=== PATIENT | female | born 2005 | race Caucasian/White ===

== ENCOUNTER 2025-02-03 11:11 | Outpatient (AMB) | payer BC, SELFPAY ==
--- NOTE | 2025-02-03 11:17 | HO.NEPHOV ---
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 She has been feeling tired and was seen in [facility] health services. She underwent investigations including renal functions and was found have a serum creatinine of 1.2 in November. Subsequently it was repeated it was 1.1 and very recently was 1.08. She is not hypertensive or diabetic. She has no history of ankle swelling, proteinuria, hypertension, recurrent UTI, microscopic hematuria or hearing deficits. She was a premature baby at and had auditory processing disorder. She has depression and is on multiple antidepressant medications. She denies any hospitalizations or UTI treatments during her childhood. She denies any history of reflux nephropathy. Blood pressure has been steady and stable. She has gained some weight but not excessively. She does not take any drugs or creatine. She does not work out excessively and denies any muscle pain, joint pains, epistaxis, photosensitivity, his new skin rashes, flank pain, hematuria. She does not take excessive nonsteroidal anti-inflammatories but is not very good with keeping up with hydration. She has no diagnose the autoimmune disorders. Recently she was found to have sleep apnea and has been on CPAP for last couple weeks. She feels her energy is better but not good when she wakes up. She denies any nausea, vomiting, diarrhea, proximal nocturnal dyspnea, orthopnea or orthostatic symptoms. [facility] Medical History (Updated 02/03/25 @ 12:59 by Boni Enciso MD) High serum creatine Depression Auditory processing disorder CHRISTOPHER (obstructive sleep apnea) Low ferritin Family History Mother Ovarian cancer Social History Alcohol intake: never Patient Tobacco Use Status: Never used Tobacco Review of Systems Const All systems reviewed & are unremarkable except as noted in HPI and below Physical Exam Vital Signs: Last Vital Signs BP 110/70 02/03/25 11:21 BMI result Body Mass Index 33.8 Const General: comfortable and no acute distress Orientation/consciousness: patient oriented x3 HEENT Head: Yes normocephalic Mouth: Normal oral and palatal mucosa present Eyes EOM: EOMs intact bilaterally Neck Neck: Yes supple Resp Auscultation: clear to auscultation bilaterally Cardio Jugular venous distension: no JVD Rate: regular rate GI Palpation (GI): Soft to palpation Auscultation: normal bowel sounds Skin General skin exam: no rashes or lesions noted Neuro General: patient oriented x3 and moves all extremities Extrem General: Yes no pedal edema Results Reviewed Nephrology Results: No Data to Display Assessment & Plan Assessment & Plan (1) High serum creatine: Code(s): R79.89 - Other specified abnormal findings of blood chemistry Category: Medical Plan Ignacia was found to have a serum creatinine of 1.2 as an incidental finding while investigating for her tiredness. Recent serum creatinine is 1.08. She denies any recurrent UTI or UTI as a child or reflux nephropathy. She has no history of proteinuria, microscopic hematuria, sensorineural deafness, hypertension. She claims to have auditory processing disorder. I have ordered ultrasound of the kidney, urinalysis as well as creatinine clearance. If her creatinine clearance is lower than expected for her age, I shall investigate it further. She could continue on her current medications and should remain compliant with CPAP. She may benefit from increasing her oral iron and we should check thyroid function if not done yet. I did not make any medication changes today but rather encouraged her to maintain good hydration and avoid nonsteroidal anti-inflammatories. I answered all questions and follow-up appointment given in a few weeks Orders: Orders Protein Creatinine Ratio, Ur Today R79.89 - Other specified abnormal findings of blood chemistry Electrolytes Today R7.89 - Other specified abnormal findings of blood chemistry Creatinine Today R7.89 - Other specified abnormal findings of blood chemistry UA and rflx microscopic Today R7. - Other specified abnormal findings of blood chemistry Creatinine Clearance Urine 24U Today R7.89 - Other specified abnormal findings of blood chemistry Blood Urea Nitrogen Today R79.89 - Other specified abnormal findings of blood chemistry US renal BI 2 Weeks R79.89 - Other specified abnormal findings of blood chemistry Coding Level of Care Code New Pt Level 4 (88765) Diagnoses High serum creatine R79.89
[2025-02-03 11:21] VITALS: BP 110/70; BMI 33.8
--- OUTSIDE RECORDS SUMMARY | 2025-02-03 12:33 | XMS_ITS | Clinical Summary ---
[facility] Address [address] [place] [address] Phone Care Team Providers Care Fox Farmer Name Role Phone Physician, No Pcp Primary Care Provider Unavaila ble Allergies No known active allergies Medications buPROPion XL (WELLBUTRIN XL) 150 mg 24 hr tablet Take 1 tablet (150 mg total) by mouth 1 (one) time each day. Active buPROPion XL (WELLBUTRIN XL) 300 mg 24 hr tablet Take 1 tablet (300 mg total) by mouth 1 (one) time each day in the morning. Active Vraylar 3 mg capsule Take 1 capsule (3 mg total) by mouth at bedtime. 11/06/2023 Active Xopenex HFA 45 mcg/actuation inhaler Inhale 2 puffs by mouth every 30 minutes as needed. 11/06/2023 Active lisdexamfetamin e (VYVANSE) 60 mg capsule Take 1 capsule (60 mg total) by mouth 1 (one) time each day in the morning. 09/17/2023 Active vilazodone (VIIBRYD) 40 mg tablet Take 1 tablet (40 mg total) by mouth 1 (one) time each day. Active Immunizations Name Administration Dates Next Due DTaP (Infanrix) 6wks to less than 7yo ,03/07/2004,2003,09/09 DTaP / Hib 08/16/2004 HPV 9-valent (Gardisil) 9yo to less than 46yo 04/19/2016,12/20/2015 HPV, Quadrivalent 06/14/2015 Hepatitis A Pediatric (Havri x; Vaqta) 12mo to less than 19yo 06/08/2008,09/19/2006 Hepatitis B (Dxpfryn-V-Nsxru , Recombivax HB-Adult) 19yo and older 03/07/2004,2003,2003 HiB 2003,2003,2003 IPV Inactivated polio (Ipol) 6wks and older 06/08/2008,08/02/2004,2003,09/09 Influenza Quadravalent, MDCK , 0.5ml, preservative free (Flucelvax) 6mo and older 11/12/2022,08/08/2019 Influenza Quadrivalent, 0.5m l, preservative free (Fluarix; FluLaval; Fluzone) ages 6mo and older (Afluria) 3yo and older 09/19/2020,09/05/2018,09/01/2017,07/03 Influenza trivalent, 0.5mL, preservative free (Fluarix; FluLaval; Fluzone) ages 6mo and older (Afluria) 3 years and older 08/12/2005,09/17/2004,08/16/2004 Influenza trivalent, with pr eservative (Fluzone; Afluria) 6mo and older 07/15/2009,09/19/2007,09/19/2006 Influenza, Unspecified 07/15/2021 MMR, measles mumps and rubel la Live (Priorix; M-M-R II) 12mo and older 05/23/2008,10/03/2004 Meningococcal B, Recombinant (Bexsero) 16yo to less than 24yo 05/30/2021,04/19/2021 Meningococcal MCV4P 04/19/2021,07/03/2016 Pneumococcal Conjugate Vacci ne, 7 Valent 01/14/2005,08/02/2004,01/25/2004,09/09 Tdap Tetanus diptheria acell ular pertussis (Boostrix; Adacel) 7yo and older 2014 Varicella live (Varivax) 12m o and older 05/23/2008,09/17/2004 Social History Tobacco Use Types Packs/Day Years Used Date Smoking Tobacco: Never Smokeless Tobacco: Never Comments Unknown Sex and Gender Information Value Date Recorded Sex Assigned at Female 05/22/2024 3:11 PM EDT Legal Sex Female 2:38 PM EDT Gender Identity Other 05/22/2024 3:11 PM EDT Sexual Orientation Not on file Obstetrics History Last Filed Vital Signs Vital Sign Reading Time Taken Comments Blood Pressure 101/66 05/22/2024 2:55 PM EDT Pulse 102 05/22/2024 2:55 PM EDT Temperature 36.6 ??C (97.9 ??F) 05/22/2024 2:55 PM ED T Respiratory Rate 18 05/22/2024 2:55 PM EDT Oxygen Saturation 98% 05/22/2024 2:55 PM EDT Inhaled Oxygen Concentration - - Weight 77.2 kg (170 lb 3.2 oz) 05/22/2024 2:55 P M EDT Height 167 cm (5' 5.75 ) 05/22/2024 2:55 PM EDT Body Mass Index 27.68 05/22/2024 2:55 PM EDT Plan of Treatment Health Maintenance Due Date Last Done Comments Gonorrhea/Chlamydia Screening 2003 Cervical Cancer Screening: Pap Smear 2024 DTaP,Tdap,and Td Vaccines (7 - Td or Tdap) 2024 2014, 06/08/2008, 08/16/2004, Additional history exists HIV Screening 05/22/2024 Social Influencers of Health Screening 05/22/2024 COVID-19 Vaccine ( season) 2024 08/10/2023, 03/16/2021, 02/22/2021 Annual Well Child Visit (3-21 years old) 11/06/2024 11/06/2023, 04/19/2021, 09/09/2019, Additional history exists Depression Screening 11/06/2024 11/06/2023 Influenza Vaccine (Season Ended) 2025 11/12/2022, 07/15/2021, 09/19/2020, Additional history exists Hepatitis B Vaccines Completed 03/07/2004, 2003, 2003 HIB Vaccines Completed 08/16/2004, 12/05, 2003, Additional history exists Pneumococcal Vaccine: Pediatrics (0 to 5 Years) and At-Risk Patients (6 to 64 Years) Completed 01/14/2005, 08/02/2004, 01/25/2004, Additional history exists MMR Vaccines Completed 05/23/2008, 10/03/2004 Varicella Vaccines Completed 05/23/2008, 09/17/2004 Hepatitis A Vaccines Completed 06/08/2008, 09/19/20 IPV Vaccines Completed 06/08/2008, 07/06, 2003, Additional history exists HPV Vaccines Completed 04/19/2016, 12/04, 06/14/2015 Meningococcal ACWY Vaccine Completed 04/19/2021, Meningococcal B Vacine Completed 05/30/2021, 2020 Hepatitis C Screening Completed 03/15/2022 RSV Immunization Patients Under 20 months Aged Out No longer eligible based on patient's age to complete this topic Insurance ([facility]) Care Teams Fox Farmer Relationship Specialty Start Date End Date Physician, No Pcp PCP - General 05/22/24
== END 2025-02-03 11:48 | disposition home or self-care (01) ==
LOC: HO.HKAS 11:12
PROVIDERS: Visit Provider Internal Medicine Nephrology
DX: R79.89 Other specified abnormal findings of blood chemistry (principal)
CPT/HCPCS: 99204

== ENCOUNTER → 2025-02-03 11:11 | Outpatient (BNVA) | payer BC, SELFPAY | PROVIDERS: Visit Provider Internal Medicine Nephrology ==

== ENCOUNTER 2025-02-24 13:13 | Outpatient (REF) | payer BC, SELFPAY ==
--- NOTE | ~2025-02-24 | US_ITS ---
CLINICAL HISTORY: R79.89 - Other specified abnormal findings of blood chemistry --- Additional Notes or Special Instructions: high level serum creatine US Renal Comparison: None Findings: Right kidney normal size and echotexture, 10.1 cm length. Left kidney normal size and echotexture, 10.2 cm length. No collecting system dilatation of either kidney. Normal color Doppler. IMPRESSION: 1. Normal kidneys. This document has been electronically signed by: Chandler Barboza MD on 02/26/2025 08:16:02
== END 2025-02-24 13:14 | disposition home or self-care (01) ==
LOC: HO.HMGCX 13:13
PROVIDERS: Visit Provider Internal Medicine Nephrology
DX: R79.89 Other specified abnormal findings of blood chemistry (principal)
CPT/HCPCS: 76775

== ENCOUNTER → 2025-02-24 13:16 | Outpatient (BNV) | payer BC, SELFPAY | PROVIDERS: Visit Provider Radiology Vascular & Interventional Radiology | DX: R79.89 Other specified abnormal findings of blood chemistry (principal) | CPT/HCPCS: 76775 ==

== ENCOUNTER 2025-03-04 15:10 | Outpatient (AMB) | payer BC, SELFPAY ==
--- OUTSIDE RECORDS SUMMARY | 2025-03-04 15:12 | XMS_ITS | Clinical Summary ---
Author Organization [facility] Address [address] [place] [address] Phone Care Team Providers Care Protohistorian Name Role Phone Physician, No Pcp Primary [...] to less than 19yo 06/08/2008,09/19/2006 Hepatitis B (Qctmjma-B-Bmhbz , Recombivax HB-Adult) 19yo and older 03/07/2004,2003,2003 [...] Meningococcal ACWY Vaccine Completed 04/19/2021, Meningococcal B Vaccine Completed 05/30/2021, 04/19 Hepatitis C Screening Completed 03/15/2022 RSV Immunization Patients Under 20 months Aged Out No longer eligible based on patient's age to complete this topic [place] [address] [place] [address] ([facility]) Care Teams Protohistorian Relationship Specialty Start Date End Date Physician, No Pcp PCP - General 05/22/24
--- NOTE | 2025-03-04 15:39 | HO.NEPHOV_ITS ---
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 She has been feeling tired and was seen in [facility] health services. She underwent investigations including renal functions and was found have a serum creatinine of 1.2 in November. Subsequently it was repeated it was 1.1 and very recently it was same. She is not hypertensive or diabetic. She has no history of ankle swelling, proteinuria, hypertension, recurrent UTI, microscopic hematuria or hearing deficits. She was a premature baby at and had auditory processing disorder. She has depression and is on multiple antidepressant medications. She denies any hospitalizations or UTI treatments during her childhood. She denies any history of reflux nephropathy. Her blood pressure has been steady and stable. She has gained some weight but not excessively. She does not take any drugs or creatine. She does not work out excessively and denies any muscle pain, joint pains, epistaxis, photosensitivity, his new skin rashes, flank pain, hematuria. She does not take excessive nonsteroidal anti-inflammatories but is not very good with keeping up with hydration. She has no diagnose the autoimmune disorders. Recently she was found to have sleep apnea and has been on CPAP . She feels her energy is better but not good when she wakes up. She denies any nausea, vomiting, diarrhea, proximal nocturnal dyspnea, orthopnea or orthostatic symptoms. [facility] Medical History High serum creatine Depression Auditory processing disorder CHRISTOPHER (obstructive sleep apnea) Low ferritin Family History Mother Ovarian cancer Social History Alcohol intake: never Patient Tobacco Use Status: Never used Tobacco Review of Systems Const All systems reviewed & are unremarkable except as noted in HPI and below Physical Exam Vital Signs: Last Vital Signs Pulse 94 03/04/25 15:40 BP 104/60 03/04/25 15:40 Pulse Ox 97 03/04/25 15:40 Oxygen Delivery Method Room Air 03/04/25 15:40 BMI result Body Mass Index 33.6 Const General: comfortable and no acute distress Orientation/consciousness: patient oriented x3 HEENT Head: Yes normocephalic Mouth: Normal oral and palatal mucosa present Eyes EOM: EOMs intact bilaterally Neck Neck: Yes supple Resp Auscultation: clear to auscultation bilaterally Cardio Jugular venous distension: no JVD Rate: regular rate GI Palpation (GI): Soft to palpation Auscultation: normal bowel sounds General: Yes no CVA tenderness Back/Spine/Pelvis Back: no CVA tenderness Skin General skin exam: no rashes or lesions noted Neuro General: patient oriented x3 and moves all extremities Extrem General: Yes no pedal edema Results Reviewed Nephrology Results: Renal US 02/26/25 Assessment & Plan Assessment & Plan (1) High serum creatine: Code(s): R79.89 - Other specified abnormal findings of blood chemistry Category: Medical Plan Ignacia was found to have a serum creatinine of 1.2 as an incidental finding while investigating for her tiredness. Recent serum creatinine is 1.1. She denies any recurrent UTI or UTI as a child or reflux nephropathy. She has no history of proteinuria, microscopic hematuria, sensorineural deafness, hypertension. She claims to have auditory processing disorder. If her creatinine clearance is lower than expected for her age, I shall investigate it further. She could continue on her current medications and should remain compliant with CPAP. She may benefit from increasing her oral iron and we should check thyroid function if not done yet. I did not make any medication changes today but rather encouraged her to maintain good hydration and avoid nonsteroidal anti-inflammatories. I answered all questions and follow-up appointment given Orders: Orders Creatinine Clearance Urine 24U 6 Months R7.89 - Other specified abnormal findings of blood chemistry Creatinine 6 Months R7 - Other specified abnormal findings of blood chemistry Blood Urea Nitrogen 6 Months R7. - Other specified abnormal findings of blood chemistry Electrolytes 6 Months R79.89 - Other specified abnormal findings of blood chemistry Calcium 6 Months R79.89 - Other specified abnormal findings of blood chemistry Coding Level of Care Code Est Pt Level 4 (54594) Diagnoses High serum creatine R79.89
[2025-03-04 15:40] VITALS: BP 104/60; PULSE 94; O2SAT 97; BMI 33.6
== END 2025-03-04 16:11 | disposition home or self-care (01) ==
LOC: HO.HKA 15:10
PROVIDERS: Visit Provider Internal Medicine Nephrology
DX: R79.89 Other specified abnormal findings of blood chemistry (principal)
CPT/HCPCS: 99214

== ENCOUNTER → 2025-03-04 15:10 | Outpatient (BNVA) | payer BC, SELFPAY | PROVIDERS: Visit Provider Internal Medicine Nephrology ==

== ENCOUNTER 2025-09-02 10:40 | Outpatient (AMB) | payer BC, SELFPAY ==
--- NOTE | 2025-09-02 10:42 | HO.NEPHOV ---
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 She is 20 years of age, from [place], who was a student in [employer] majoring in [email or web address] and [employer], now graduated and working . She has been feeling tired and was seen in [facility] health services. She underwent investigations including renal functions and was found have a serum creatinine of 1.2 in November. Subsequently it was repeated it was 1.1 and very recently it was same. She is not hypertensive or diabetic. She has no history of ankle swelling, proteinuria, hypertension, recurrent UTI, microscopic hematuria or hearing deficits. She was a premature baby at and had auditory processing disorder. She has depression and is on multiple antidepressant medications. She denies any hospitalizations or UTI treatments during her childhood. She denies any history of reflux nephropathy. Her blood pressure has been steady and stable. She has gained some weight but not excessively. She does not take any drugs or creatine. She does not work out excessively and denies any muscle pain, joint pains, epistaxis, photosensitivity, his new skin rashes, flank pain, hematuria. She does not take excessive nonsteroidal anti-inflammatories but is not very good with keeping up with hydration. She has no diagnose the autoimmune disorders. Recently she was found to have sleep apnea and has been on CPAP . She feels her energy is better but not good when she wakes up. She denies any nausea, vomiting, diarrhea, proximal nocturnal dyspnea, orthopnea or orthostatic symptoms. [facility] Medical History High serum creatine Depression Auditory processing disorder CHRISTOPHER (obstructive sleep apnea) Low ferritin Family History Mother Ovarian cancer Social History Alcohol intake: never Patient Tobacco Use Status: Never used Tobacco Review of Systems Const All systems reviewed & are unremarkable except as noted in HPI and below Physical Exam Vital Signs: Last Vital Signs Pulse 92 09/02/25 10:44 BP 102/60 09/02/25 10:44 Pulse Ox 97 09/02/25 10:44 Oxygen Delivery Method Room Air 09/02/25 10:44 Const General: comfortable and no acute distress Orientation/consciousness: patient oriented x3 HEENT Head: Yes normocephalic Mouth: Normal oral and palatal mucosa present Eyes EOM: EOMs intact bilaterally Neck Neck: Yes supple Resp Auscultation: clear to auscultation bilaterally Cardio Jugular venous distension: no JVD Rate: regular rate GI Palpation (GI): Soft to palpation Auscultation: normal bowel sounds General: Yes no CVA tenderness Back/Spine/Pelvis Back: no CVA tenderness Skin General skin exam: no rashes or lesions noted Neuro General: patient oriented x3 and moves all extremities Extrem General: Yes no pedal edema Results Reviewed Nephrology Results: Renal US 02/26/25 Assessment & Plan Assessment & Plan (1) High serum creatine: Code(s): R79.89 - Other specified abnormal findings of blood chemistry Category: Medical Plan Ignacia was found to have a serum creatinine of 1.2 as an incidental finding while investigating for her tiredness. Recent last serum creatinine was 1.1. She denies any recurrent UTI or UTI as a child or reflux nephropathy. She has no history of proteinuria, microscopic hematuria, sensorineural deafness, hypertension. She claims to have auditory processing disorder. If her creatinine clearance is lower than expected for her age, I shall investigate it further. She could continue on her current medications and should remain compliant with CPAP. She is on oral iron and we should check thyroid function if not done yet. I did not make any medication changes today but rather encouraged her to maintain good hydration and avoid nonsteroidal anti-inflammatories. I answered all questions and follow-up appointment given Orders: Orders Creatinine 8 Months - Other specified abnormal findings of blood chemistry Blood Urea Nitrogen 8 Months - Other specified abnormal findings of blood chemistry Protein Creatinine Ratio, Ur 8 Months - Other specified abnormal findings of blood chemistry Electrolytes Today - Other specified abnormal findings of blood chemistry Creatinine Today - Other specified abnormal findings of blood chemistry Electrolytes 8 Months R79.89 - Other specified abnormal findings of blood chemistry Blood Urea Nitrogen Today R79.89 - Other specified abnormal findings of blood chemistry Coding Level of Care Code Est Pt Level 4 (78903) Diagnoses High serum creatine R79.89
[2025-09-02 10:44] VITALS: BP 102/60; PULSE 92; O2SAT 97
== END 2025-09-02 11:02 | disposition home or self-care (01) ==
LOC: HO.HKA 10:40
PROVIDERS: Visit Provider Internal Medicine Nephrology
DX: R79.89 Other specified abnormal findings of blood chemistry (principal)
CPT/HCPCS: 99214

== ENCOUNTER 2025-09-02 10:40 | Outpatient (REF) | payer BC, SELFPAY ==
--- OUTSIDE RECORDS SUMMARY | 2025-09-02 12:49 | XMS_ITS | Clinical Summary ---
Author Organization [facility] Address [address] [place] [address] Phone Care Team Providers Care Journeyman Molder Name Role Phone Physician, No Pcp Primary [...] (3 mg total) by mouth at bedtime. 4 Active Xopenex HFA 45 mcg/actuation inhaler Inhale 2 puffs by mouth Every 4 hours as needed. 4 Active lisdexamfetamine (VYVANSE) 60 mg capsule Take 1 capsule (60 mg total) by mouth 1 (one) time each day in the morning. 3 Active vilazodone (VIIBRYD) 40 mg tablet Take 1 tablet (40 mg total) by mouth 1 (one) time each day. Active albuterol HFA (PROAIR HFA ; PROVENTIL HFA ; VENTOLIN HFA) 90 mcg/actuation inhalerIndicatio ns:Upper respiratory tract infection, unspecified type Inhale 2 puffs by mouth every 4 (four) hours if needed for wheezing or shortness of breath. 8 g 5 Active Active Problems No known active problems Immunizations Immunization Administration Dates Next Due DTaP (Infanrix) 6wks to less than 7yo ,03/07/2004,2003,09/09 DTaP / Hib 08/16/2004 HPV 9-valent (Gardisil) 9yo to less than 46yo 04/19/2016,12/20/2015 HPV, Quadrivalent 06/14/2015 Hepatitis A Pediatric (Havri x; Vaqta) 12mo to less than 19yo 06/08/2008,09/19/2006 Hepatitis B (Vpqwrud-D-Vwayb , Recombivax HB-Adult) 19yo and older 03/07/2004,2003,2003 [...] Sign Reading Time Taken Comments Blood Pressure 119/78 04/24/2025 8:42 AM EDT Pulse 106 04/24/2025 8:42 AM EDT Temperature 36.2 C (97.1 F) 04/24/2025 8:42 AM EDT Respiratory Rate 15 04/24/2025 8:42 AM EDT Oxygen Saturation 97% 04/24/2025 8:42 AM EDT Inhaled Oxygen Concentration - - Weight 90.7 kg (200 lb) 04/24/2025 8:42 AM EDT Height 167 cm (5' 5.75 ) 04/24/2025 8:42 AM EDT Body Mass Index 32.53 04/24/2025 8:42 AM EDT Plan of Treatment Health Maintenance Due Date Last Done Comments Gonorrhea/Chlamydia Screening 2003 Cervical Cancer Screening: Pap Smear 2024 DTaP,Tdap,and Td Vaccines (7 - Td or Tdap) 2024 2014, 06/08/2008, 08/16/2004, Additional history exists HIV Screening 05/22/2024 Social Influencers of Health Screening 05/22/2024 Depression Screening 11/03/2024 COVID-19 Vaccine ( season) 2025 08/10/2023, 03/16/2021, 02/22/2021 Influenza Vaccine (#1) 2025 , 07/15/2021, 09/19/2020, Additional history exists RSV Immunization Adult Patients (1 - 1-dose 75+ series) 2078 Hepatitis B Vaccines Completed 03/07/2004, 2003, 2003 HIB Vaccines Completed 08/16/2004, 12/05, 2003, Additional history exists Pneumococcal Vaccine: Pediatrics (0 to 5 Years) and At-Risk Patients (6 to 49 Years) Completed 01/14/2005, 08/02/2004, 01/25/2004, Additional history exists MMR Vaccines Completed 05/23/2008, 10/03/2004 Varicella Vaccines Completed 05/23/2008, 09/17/2004 Hepatitis A Vaccines Completed 06/08/2008, 09/19/20 06 IPV Vaccines Completed 06/08/2008, 07/06, 2003, Additional history exists HPV Vaccines Completed 04/19/2016, 12/04, 06/14/2015 Meningococcal ACWY Vaccine Completed 04/19/2021, Meningococcal B Vaccine Completed 05/30/2021, 04/19 Hepatitis C Screening Completed 03/15/2022 RSV Immunization Patients Under 20 months Aged Out No longer eligible based on patient's age to complete this topic Insurance [facility] Care Teams Journeyman Molder Relationship Specialty Start Date End Date Physician, No Pcp PCP - General 05/22/24
[2025-09-02 12:57] LABS: Appearance Urine Clear; Glucose Urine UA Negative (Negative); PH 7.0 (5.0-9.0); Specific Gravity - Urine 1.020 (1.005-1.025); UMIC TRIGGER UA YES
[2025-09-02 13:10] LABS: Anion Gap 10 (12-20); Blood Urea Nitrogen 11 mg/dL (9-16); Calcium 9.2 mg/dL (8.4-10.2); Carbon Dioxide 30 mmol/L (22-29); Chloride 105 mmol/L (96-108); Estimated Glomerular Filt Rate > 60; Potassium 4.1 mmol/L (3.3-5.1); Sodium 141 mmol/L (135-145)
[2025-09-02 13:33] LABS: Protein/Creatinine Ratio, Ur 0.05 (<0.2); Total Protein Urine Random 8 mg/dL (<12)
== END 2025-09-02 10:41 | disposition home or self-care (01) ==
LOC: HO.LAB 10:40
PROVIDERS: Visit Provider Internal Medicine Nephrology
DX: R79.89 Other specified abnormal findings of blood chemistry (principal)
CPT/HCPCS: 36415; 80051; 81001; 82310; 82565; 82570; 84156; 84520